=== PATIENT | female | born 1975 | race Two or more races ===

== ENCOUNTER 2020-03-13 10:05 | Emergency (ER) | payer BC, OTHER ==
[~2020-03-13] VITALS: Ht 154.9 cm; Wt 63.8 kg
--- NOTE | 2020-03-13 10:39 | NUR ---
pt placed on cardiac, nibp, and o2 monitoring. ekg being performed now. call light in reach.
[2020-03-13] MEDS ORDERED: ONDANSETRON ODT 4 MG ONE (10:42)
[2020-03-13] MEDS ORDERED: LORazepam 1MG TABLET ONE (10:43)
[2020-03-13] MEDS ORDERED: ONDANSETRON ODT 4 MG PO ONE (11:00)
[2020-03-13] MEDS ORDERED: LORazepam 1MG TABLET PO ONE (11:00)
[2020-03-13 11:30] LABS: BASOPHILS % (AUTO) 1 % (0-1); EOSINOPHILS % (AUTO) 1 % (1-7); LYMPHOCYTES % (AUTO) 24 % (22-44); MEAN CORPUSCULAR HEMOGLOBIN 28.3 pg (27.0-34.8); MEAN CORPUSCULAR HGB CONC 32.9 g/dL (32.4-35.8); MEAN PLATELET VOLUME 8.1 fL (7.4-10.4); MONOCYTES % (AUTO) 8 % (2-9); NEUTROPHILS % (AUTO) 67 % (42-75); PLATELET COUNT 262 x10^3/uL (130-400); RED BLOOD COUNT 4.55 x10^6/uL (3.82-5.3); RED CELL DISTRIBUTION WIDTH 13.7 % (9.6-15.2)
[2020-03-13 11:42] LABS: ALANINE AMINOTRANSFERASE 17 U/L (12-78); ALBUMIN 3.2 g/dL (3.4-5.0); ANION GAP 7 mmol/L (5-15); CALCIUM 8.6 mg/dL (8.5-10.1); CHLORIDE 107 mmol/L (98-107); CREATININE 0.86 mg/dL (0.55-1.02); MD NO
[2020-03-13 11:47] LABS: ALKALINE PHOSPHATASE 88 U/L (45-117); BILIRUBIN,TOTAL 0.6 mg/dL (0.2-1.0); TOTAL PROTEIN 7.2 g/dL (6.4-8.2); TROPONIN I < 0.015 ng/mL (0.000-0.045)
[2020-03-13 12:01] VITALS: BP 103/70
== END 2020-03-13 12:22 | disposition home or self-care (01) ==
LOC: ED 11:14
DX: R07.89 Other chest pain (principal); F41.1 Generalized anxiety disorder; I10 Essential (primary) hypertension
CPT/HCPCS: 36415; 71046; 80053; 84484; 84703; 85025; 93005; 99285; Q0162